=== PATIENT | male | born 1955 | race Hispanic/Latino ===

== ENCOUNTER → 2018-03-20 | Outpatient (CLI) | payer OTHER ==
[~2018-03-20] MED LIST: ACET-66 PO; AMLO10TA2 PO; ATOR10 PO; HYDR-2132 PO; LISI10TA7 PO; RIVA10TA PO; TERA2CAP4 PO
== END | disposition home or self-care (01) ==
LOC: SHCH 12:32
PROVIDERS: ATTEND Internal Medicine Cardiovascular Disease
DX: I25.10 Atherosclerotic heart disease of native coronary artery without angina pectoris (principal); I10 Essential (primary) hypertension; Z95.1 Presence of aortocoronary bypass graft
CPT/HCPCS: 93306

== ENCOUNTER → 2023-01-09 | Outpatient (CLI) | payer MEDICARE ==
[~2023-01-09] MED LIST changes: +AMLO-258 PO; -AMLO10TA2 PO; +LISI10TA24 PO; -LISI10TA7 PO
== END | disposition home or self-care (01) ==
LOC: SHCH 13:10
PROVIDERS: ATTEND Internal Medicine Cardiovascular Disease
DX: R06.09 Other forms of dyspnea (principal)
CPT/HCPCS: 93306

== ENCOUNTER → 2023-05-10 | Outpatient (CLI) | payer MEDICARE | END | disposition home or self-care (01) | LOC: SHCH 12:44 | PROVIDERS: ATTEND Internal Medicine Cardiovascular Disease | DX: I87.2 Venous insufficiency (chronic) (peripheral) (principal); I87.1 Compression of vein | CPT/HCPCS: 93970 ==

== ENCOUNTER → 2023-05-15 | Outpatient (CLI) | payer MEDICARE ==
[~2023-05-15] MED LIST changes: +REGADENOSON 0.4 MG/5 ML PF SYG IVP ONE
== END | disposition home or self-care (01) ==
LOC: SHCH 08:04
PROVIDERS: ATTEND Internal Medicine Cardiovascular Disease
DX: I11.9 Hypertensive heart disease without heart failure (principal); I45.10 Unspecified right bundle-branch block; I25.118 Atherosclerotic heart disease of native coronary artery with other forms of angina pectoris; R06.09 Other forms of dyspnea; E78.49 Other hyperlipidemia; I87.2 Venous insufficiency (chronic) (peripheral); E66.01 Morbid (severe) obesity due to excess calories; Z68.41 Body mass index [BMI] 40.0-44.9, adult; Z95.1 Presence of aortocoronary bypass graft
CPT/HCPCS: 78452; 96374; 93017; J2785; A9500 ×2